=== PATIENT | female | born 1980 | race Caucasian/White ===

== ENCOUNTER 2018-07-07 20:52 | Emergency (ER) | payer BC ==
[~2018-07-07] VITALS: Ht 157.5 cm; Wt 80.3 kg
[~2018-07-07 20:52] MED LIST: VIC
[2018-07-07 21:33] VITALS: BP 122/70
--- NOTE | 2018-07-07 21:35 | NUR ---
PT AMBULATED TO LOBBY WITH VSS.
--- NOTE | 2018-07-07 22:45 | NUR ---
PT AMBULATED TO BED #9
[2018-07-08 00:04] LABS: APPEARANCE,URINE CLOUDY (CLEAR); BILIRUBIN,URINE NEGATIVE (NEGATIVE); BLOOD, URINE TRACE-L (NEGATIVE); COLOR,URINE YELLOW (YELLOW); LEUKOCYTE ESTERASE ,URINE 3+ (NEGATIVE); NITRITE, URINE NEGATIVE (NEGATIVE); UGLUCOSE NEGATIVE (NEGATIVE)
--- NOTE | 2018-07-08 00:16 | NUR ---
Dr. Gonsales at bedside.
--- NOTE | 2018-07-08 00:30 | NUR ---
PT PRESENT TO ED WITH C/O FEVER AND COUGH X1 DAY. 27 WKS . AFEBRILE AT THIS TIME. TAKING ROBITUSSIN FOR COUGH. LUNGS CLEAR BILAT. AAO X4, GCS 15, ABLE TO SPEAK WUITH FULL COMPLETE SENTENCES. RESPIATIONS EVEN AND UNLABORED, BL LUNG CLEAR. SKIN WARM/PINK/DRY, +PMSC. VSS, NO ACUTE DSITRESS AT THIS TIME. C/O NON PRODUCTIVE COUGH. WILL CONTINUE TO MONITOR
[2018-07-08 00:36] LABS: RBC,URINE 0-5 /HPF (0-5); WBC,URINE TOO MANY TO COUNT /HPF (0-5)
[2018-07-08 00:43] VITALS: BP 107/69
--- NOTE | 2018-07-08 00:43 | NUR ---
Patient discharged with v/s stable. Written and verbal after care instructions given and explained. Patient verbalized understanding. Ambulatory with steady gait. All questions addressed prior to discharge. Advised to follow up with PMD.
== END 2018-07-08 00:43 | disposition home or self-care (01) ==
LOC: MED 20:52
DX: O99.512 Diseases of the respiratory system complicating pregnancy, second trimester (principal); J06.9 Acute upper respiratory infection, unspecified; Z3A.27 27 weeks gestation of pregnancy; Z88.0 Allergy status to penicillin; Z79.899 Other long term (current) drug therapy
CPT/HCPCS: 81001; 87086; 99283